=== PATIENT | female | born 1975 | race Caucasian/White ===

== ENCOUNTER 2017-05-27 11:05 | Emergency (ER) | payer SELFPAY ==
[~2017-05-27] VITALS: Ht 157.5 cm; Wt 49.9 kg
[~2017-05-27 11:05] MED LIST: TOPIRAMATE25 MG PO; TRAZODONE50 MG PO
[2017-05-27 11:17] VITALS: BP 109/84
== END 2017-05-27 12:27 | disposition admitted as inpatient to this hospital (09) ==
LOC: ERH 11:05
DX: F10.229 Alcohol dependence with intoxication, unspecified (principal)